=== PATIENT | female | born 1985 | race Caucasian/White ===

== ENCOUNTER → 2016-10-24 | Outpatient (CLI) | payer BC ==
[~2016-10-24] MED LIST: PRENTAB26 PO
== END | disposition home or self-care (01) ==
LOC: C.PAPS 16:01
PROVIDERS: ATTEND Physician Assistant
DX: Z01.419 Encounter for gynecological examination (general) (routine) without abnormal findings (principal)

== ENCOUNTER 2017-02-02 07:10 | Observation (INO) | payer BC, OTHER ==
[2017-01-12 12:49] VITALS: BMI 39.0
--- NOTE | 2017-01-12 13:18 | PAT Medication Instructions ---
Service Date Jan 12, 2017. Current Home Medication List Albuterol Hfa (Ventolin Hfa), 2 PUFFS INH PRN Ethinyl Estradiol/Norethindr (Microgestin 1.5MG/30MG), 1 TAB PO QAM Ibuprofen Tab (Advil), 600 MG PO PRN Medication Instructions For Your Scheduled Surgery - Contact your surgeon for instructions for: Ethinyl Estradiol/Norethindr (Microgestin 1.5MG/30MG), 1 TAB PO QAM Ibuprofen Tab (Advil), 600 MG PO PRN - Take the following medications the morning of surgery with a sip of water: Albuterol Hfa (Ventolin Hfa), 2 PUFFS INH PRN (if needed) - Take the following medications as scheduled the night before surgery: Albuterol Hfa (Ventolin Hfa), 2 PUFFS INH PRN (if needed) If you have any questions please call us at [phone] or [phone] or [phone]
[2017-01-12 14:06] LABS: BASO % 0.4 %; BASO ABS # 0.03 K/uL (0-0.2); COMPLETE YES; EOS % 1.7 %; IG% 0.1 %; LYMPH % 30.2 %; LYMPH ABS # 2.09 K/uL (1.2-3.4); MEAN CELL VOLUME 95.6 fL (80-100); MEAN CORPUSCULAR HEMOGLOBIN 31.6 pg (25-34); MEAN CORPUSCULAR HGB CONC 33.1 g/dl (32-36); MEAN PLATELET VOLUME 9.4 fL (7.4-10.4); NEUT % 58.6 %; PLATELET COUNT 253 K/uL (130-400); RED BLOOD COUNT 4.08 M/uL (4.2-5.4); WHITE BLOOD COUNT 6.91 K/uL (4.8-10.8)
[~2017-02-02] VITALS: Ht 154.9 cm; Wt 93.0 kg
[~2017-02-02 07:10] MED LIST changes: +CEFAZOLIN 2000MG IV PUSH 10 ML IV SCH; +IBUP-103 PO; +LACTATED RINGER'S 1000ML 1,000 ML IV SCH; +NORE-24 PO; -PRENTAB26 PO; +VNTHFA/IN INH
[2017-02-02 07:35] VITALS: BP 135/74; PULSE 90; TEMP 36.4; O2SAT 98; Ht 154.9 cm; Wt 93.0 kg
[2017-02-02] MEDS ORDERED: LOPE-41 PO (07:35)
--- NOTE | 2017-02-02 07:40 | History & Physical Bridge Note ---
H&P Re-Evaluation Bridge Note: I have examined the patient, reviewed the History & Physical and in the interval since the performance of the History & Physical I have noted the following changes of clinical significance: No changes noted
[2017-02-02] MEDS ORDERED: LACTATED RINGER'S 1000ML 1,000 ML IV SCH (07:44)
[2017-02-02] MEDS ORDERED: KETOROLAC TROMETHAMINE 30 MG/ML VIAL IV. PRN (07:45)
[2017-02-02] MEDS ORDERED: SIMETHICONE 80 MG CHEW PO PRN (07:45)
[2017-02-02] MEDS ORDERED: MEPERIDINE HCL 50 MG/ML CARP IV PRN ×2 (07:45)
[2017-02-02] MEDS ORDERED: ACETAMINOPHEN 325 MG TAB PO PRN (07:45)
[2017-02-02] MEDS ORDERED: ONDANSETRON INJ 2 MG/ML 2 ML VIAL IV PRN ×2 (07:45→11:00)
[2017-02-02] MEDS ORDERED: IBUPROFEN 600 MG TAB PO PRN (07:45)
[2017-02-02] MEDS ORDERED: PROMETHAZINE HCL INJ 12.5 MG in SODIUM CHLORIDE 0.9% 50ML 50 ML IV PRN (07:45)
[2017-02-02] MEDS ORDERED: OXYCODONE/ACETAMINOPHEN 5-325 TAB PO PRN ×2 (07:45)
--- NOTE | 2017-02-02 07:46 | Discharge Instructions ---
Discharge Instructions Date of Service Feb 02, 2017. Visit Reason for Visit: Abnormal Uterine Bleeding Discharge Discharge Diagnosis / Problem: Hysterectomy Discharge Goals Goal(s): Specific goals Activity Recommendations Activity Limitations: per Instructions/Follow-up section Anesthesia . Post Anesthesia Instructions: If you have had General Anesthesia or IV Sedation: * Do not drive today. * Resume driving when surgeon permits. * Do not make important decisions or sign legal documents today. * Call surgeon for: 1. Temperature elevations greater than 101 degrees F. 2. Uncontrollable pain. 3. Excessive bleeding. 4. Persistent nausea and vomiting. 5. Medication intolerance (nausea, vomiting or rash). * For nausea and vomiting use only clear liquids such as: tea, soda, bouillon until nausea subsides, then gradually increase diet as tolerated. * If you have any concerns or questions, call your surgeon's office. If physician is unavailable and it is an emergency, call 911 or go to the nearest emergency room. . Instructions / Follow-Up Instructions / Follow-Up POST OPERATIVE: BOWEL FUNCTION/MEDICATIONS: 1. Constipation pain and discomfort are the most common complaints 5-7 days after surgery. Points 2-6 address the things that can help. 2. Chewing gum can help stimulate the gut and help improve digestion and motility. 3. Milk of Magnesia 1-2 times per day until return of bowel function. 4. Colace is a stool softener that helps. Taking this 2-3 times per day until bowel function returns to normal is highly recommended. 5. Dulcolax is a laxative that may be used if several days have passed without a bowel movement. Alternatively Miralax may be used daily instead. 6. Drink plenty of fluids as this will also reduce constipation. 7. Narcotic pain medications will be prescribed by your physician. They are safe to use and we encourage you to use them. If you are not allergic, ibuprofen will also be prescribed. Many patients will be able to transition off of the narcotic medications to ibuprofen by postoperative day 3. ACTIVITY RECOMMENDATIONS: 1. Get plenty of rest and listen to your body. If you are tired, take a nap. 2. You may shower, but do not take a tub bath until you see your doctor at the 2 week post operative visit. 3. Absolutely NO intercourse and nothing in the vagina until you are examined by your doctor at the 6 week visit. At that visit it will be determined when such activities can be resumed. This can range from 6-12 weeks after your surgery depending on healing time. 4. The main physical activity in the first week should be walking. By the second week you can slowly increase activity. There are no limits on walking up and down stairs. 5. Do not lift more than 5-10 lbs for 4 weeks. Remember the "one-handed rule", i.e. if you can lift something with only one hand it's likely okay. 6. 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 "Overdoing it" can lead to incisions not healing, pain and vaginal bleeding , so again, listen to your body. 7. Driving can be resumed when you feel able. Do not drive within 24 hours of taking a narcotic medication. EXPECTATIONS: 1. Vaginal spotting, bleeding and discharge are common after surgery. There may even be an odor to the discharge which is often related to sutures used in the vagina. If you experience heavy vaginal bleeding, call the office number day or night [phone]. 2. Bladder discomfort is common after surgery from the catheter. This usually resolves in 1-2 weeks. 3. By the end of the 3rd or 4th week you should be feeling much better. It may take up to 6 weeks for your energy levels to return to normal. 4. Narcotic medications have side effects such as: dizziness, headache, nausea and/or vomiting. If you suspect your pain medication is causing problems, call our office and we may be able to prescribe an alternate medication. 5. The skin incisions are often covered with a liquid bandage. This will gradually peel off over time. CALL THE OFFICE IF YOU HAVE ANY OF THE FOLLOWIN. Temperature of 101 degrees or higher. 2. Severe abdominal or pelvic pain not relieved by pain medication. 3. Persistent nausea or vomiting. 4. Increased pain with urination or difficulty urinating. 5. Bright red bleeding that soaks more than 1 pad per hour. CONTACT PHONE NUMBERS: Main Office: [phone] Surgical Nurse: [phone] extension [phone] FOLLOW-UP: Post-Operative Appointments: * Individual instructions will have been given about the timing of your first examination, but this is usually at the end of the second week home. * You will need to call the office at soon after discharge to make the appointment for your post-op check-up if it has not already been scheduled. * Additional information regarding activity, sexual intercourse and when to return to work will be given at this appointment. WE WISH YOU A SPEEDY RECOVERY! Diet Recommendations Recommended Home Diet: resume previous diet Pending Studies Studies pending at discharge: no Medical Emergencies . Who to Call and When: Medical Emergencies: If at any time you feel your situation is an emergency, please call 911 immediately. . Non-Emergent Contact Non-Emergency issues call your: Primary Care Provider . . "Provider Documentation" section prepared by Loren Dunham. . [place] Drug Monitoring Program Search Results: patient reviewed within database, no issues identified
[2017-02-02] MEDS ORDERED: IV FLUIDS COMPLETED PRN (08:15)
[2017-02-02] MEDS ORDERED: NEOSTIGMINE METHYLSULFATE 5 MG/5 ML SYR ONE (08:41)
[2017-02-02] MEDS ORDERED: MIDAZOLAM HCL 1 MG/ML 2ML VIAL ONE (08:41)
[2017-02-02] MEDS ORDERED: ONDANSETRON INJ 2 MG/ML 2 ML VIAL ONE (08:41)
[2017-02-02] MEDS ORDERED: DEXAMETHASONE SOD INJ 4 MG/ML VIAL ONE (08:41)
[2017-02-02] MEDS ORDERED: LIDOCAINE HCL 2% 2 ML VIAL (20MG/ML) ONE (08:41)
[2017-02-02] MEDS ORDERED: PROPOFOL IV EMULSION 10 MG/ML 20 ML VIAL IV ONE (08:41)
[2017-02-02] MEDS ORDERED: GLYCOPYRROLATE INJ 0.2 MG/ML VIAL ONE (08:41)
[2017-02-02] MEDS ORDERED: FENTANYL CITRATE INJ 50 MCG/1 ML 2 ML VIAL ONE ×2 (08:41→10:58)
[2017-02-02] MEDS ORDERED: DOCUSATE SODIUM 100 MG CAP PO SCH (09:00)
[2017-02-02] MEDS ORDERED: BUPIVACAINE 0.5 % 5 MG/1 ML MPF 30ML VIAL ONE (09:05)
[2017-02-02] MEDS ORDERED: ROCURONIUM BROMIDE 10 MG/ML 5 ML VIAL IV ONE (10:32)
[2017-02-02] MEDS ORDERED: KETOROLAC TROMETHAMINE 30 MG/ML VIAL ONE (10:32)
[2017-02-02] MEDS ORDERED: LABETALOL HCL IV 5 MG/ML 20ML IV PRN (11:00)
[2017-02-02] MEDS ORDERED: ATROPINE SULFATE 0.1 MG/ML 5ML SYR IV PRN (11:00)
[2017-02-02] MEDS ORDERED: EpHEDrine SULFATE INJ 50 MG/ML AMP IV PRN (11:00)
[2017-02-02] MEDS ORDERED: MEPERIDINE HCL 25 MG/ML CARP IV PRN (11:00)
[2017-02-02] MEDS ORDERED: FENTANYL CITRATE INJ 50 MCG/1 ML 2 ML VIAL IV PRN (11:00)
--- NOTE | 2017-02-02 11:05 | [facility] Post Operative Brief Note ---
Immediate Operative Summary Operative Date Feb 02, 2017. Pre-Operative Diagnosis Abnormal uterine bleeding Post-Operative Diagnosis Abnormal uterine bleeding Procedure(s) Performed DaVinci robot assisted total laparoscopic hysterectomy, bilateral salpingectomy , cystoscopy Surgeon Dr. Dunham Sales Applications Engineer Surgeon(s) Dr. Brown Estimated Blood Loss 10 ml Findings Normal appearing uterus, tubes, ovaries. Adhesions focused around cecum in RLQ. Cystoscopy with urine jet from each UO. Specimens A: Uterus, Cervix, and bilateral fallopian tubes Complication(s) None Disposition Recovery Room / PACU
[2017-02-02] MEDS ORDERED: HYDROmorphone INJ 1 MG/ML SYR ONE (11:09)
[2017-02-02] MEDS ORDERED: OXYC-57 PO (11:16)
[2017-02-02] MEDS: HYDROmorphone INJ 1 MG/ML SYR IV PRN ×2 (11:29→11:38)
--- NOTE | 2017-02-02 11:30 | OPERATIVE REPORT ---
DATE OF OPERATION: 02/02/2017 PREOPERATIVE DIAGNOSIS: Abnormal uterine bleeding. POSTOPERATIVE DIAGNOSIS: Same. PROCEDURE: Da Julio robot assisted total laparoscopic hysterectomy, bilateral salpingectomy and cystoscopy. SURGEON: Loren Dunham MD. LAST SCOURER: Alex Brown MD. ESTIMATED BLOOD LOSS: 10 mL. FINDINGS: Normal appearing uterus, tubes, and ovaries, adhesions focused around the cecum and the right lower quadrant. Cystoscopy with a urine jet seen from each ureteral orifice. SPECIMENS: Uterus, cervix and bilateral fallopian tubes. COMPLICATIONS: None. DISPOSITION: Stable to the recovery room. DESCRIPTION: Josefina is a 31-year-old who was seen in the office for abnormal uterine bleeding. She had either failed or declined all of the less invasive options and after several visits expressing her distinct desire for definitive therapy. We agree to proceed with a robotic laparoscopic hysterectomy. The patient was brought to the operating room, placed on the table in the dorsal lithotomy position, prepped and draped in standard sterile fashion and a hard time-out was taken prior to proceeding. First, a Rodriguez was placed and then the Ripstone uterine manipulator was placed in the typical manner. An optical entry was then made through the patient's umbilicus and the abdomen was then insufflated without any difficulty. Under direct visualization, right and left lower quadrant ports were placed. The robot was docked and surgery then began. Dissection of the right fallopian tube off of the mesosalpinx up to the cornu proceeded. The uteroovarian ligament was then ligated and divided. The round ligament was ligated and divided and a bladder flap was created. The uterine arteries were skeletonized and these were then ligated and divided on the right side. Attention was turned to the left where this was repeated dissecting the fallopian tube off of the mesosalpinx, ligating and dividing the uteroovarian ligament, ligating and dividing the round ligament and then skeletonizing the uterine artery while completing the bladder flap. The uterine arteries on the left were then ligated and divided. Colpotomy was then completed circumferentially. The uterus, cervix and tubes were delivered in 1 en bloc package through the vagina. The vaginal cuff was then closed using a V-Loc suture in a running nonlocked manner. At the completion of repair, the pelvis was copiously irrigated and good hemostasis was seen at all working sites. Both ovaries appeared viable and a survey of the abdomen revealed only some adhesive disease near the cecum which was not addressed other than having been observed. After administration of methylene blue dye, cystoscopy was completed and a good jet of urine was seen from each ureteral orifice. Closure was accomplished with a UR-6 at the fascial layer of the umbilicus. Monocryl at all 3 skin sites and then Dermabond dressing was applied. The patient was transferred in stable condition to the recovery room. I attest to the content of the Intraoperative Record and any orders documented therein. Any exception s are noted below.
--- NOTE | 2017-02-02 11:55 | Anesthesiology Progress Note ---
Anesthesia Post Op Note Date & Time Feb 02, 2017 at 11:55 Vital Signs Pain Intensity: 6 Vital Signs Past 12 Hours Date Time Temp Pulse Resp B/P (MAP) Pulse Ox O2 Delivery O2 Flow Rate FiO2 02/02/17 11:40 36.0 58 21 134/82 100 Nasal Cannula 2 02/02/17 11:30 58 20 129/72 100 Nasal Cannula 2 02/02/17 11:20 57 20 128/71 99 Nasal Cannula 2 02/02/17 11:10 55 19 129/76 100 Oxymask 10 02/02/17 11:00 53 21 139/64 100 Oxymask 10 02/02/17 10:50 36.2 57 16 148/61 99 Oxymask 10 02/02/17 07:35 36.4 90 20 135/74 (94) 98 Room Air Notes Mental Status: alert / awake / arousable, participated in evaluation Pt Amnestic to Procedure: Yes Nausea / Vomiting: adequately controlled Pain: adequately controlled Airway Patency, RR, SpO2: stable & adequate BP & HR: stable & adequate Hydration State: stable & adequate Anesthetic Complications: no major complications apparent
[2017-02-02] MEDS ORDERED: METHYLENE BLUE 0.5% 10 ML VIAL ONE (12:07)
[2017-02-02 12:20] VITALS: BP 122/57; PULSE 71; TEMP 37.2; O2SAT 98; O2SAT 99
[2017-02-02 12:50] VITALS: BP 126/74; PULSE 60; O2SAT 100
[2017-02-02 13:50] VITALS: BP 116/78; PULSE 77; TEMP 36.6; O2SAT 95
[2017-02-02 14:54] LABS: HEMATOCRIT 37.1 % (37-47)
[2017-02-02 15:30] VITALS: BP 108/71; PULSE 96; TEMP 36.8; O2SAT 97
[2017-02-02 17:01] VITALS: BP 108/71; PULSE 96; TEMP 36.8; O2SAT 97
== END 2017-02-02 17:50 | disposition home or self-care (01) ==
LOC: C.ACU 07:10 → C.MS4N 07:50
PROVIDERS: ADMIT Obstetrics & Gynecology; ATTEND Obstetrics & Gynecology
DX: N93.9 Abnormal uterine and vaginal bleeding, unspecified (principal); J45.909 Unspecified asthma, uncomplicated; Z98.818 Other dental procedure status; Z87.891 Personal history of nicotine dependence; E66.9 Obesity, unspecified; Z68.39 Body mass index [BMI] 39.0-39.9, adult; Z98.890 Other specified postprocedural states; Z90.49 Acquired absence of other specified parts of digestive tract; Z80.9 Family history of malignant neoplasm, unspecified; Z83.3 Family history of diabetes mellitus
CPT/HCPCS: 58571; S2900

== ENCOUNTER 2017-04-01 14:03 | Emergency (ER) | payer BC ==
[~2017-04-01] VITALS: Ht 157.5 cm; Wt 93.0 kg
[~2017-04-01 14:03] MED LIST changes: -CEFAZOLIN 2000MG IV PUSH 10 ML IV SCH; -LACTATED RINGER'S 1000ML 1,000 ML IV SCH; +LOPE-41 PO; -NORE-24 PO; +OXYC-57 PO
[2017-04-01 14:24] VITALS: Ht 157.5 cm; Wt 93.0 kg
[2017-04-01] MEDS ORDERED: XYLOCAINE 1%/SOD BICARB 20 ML VIAL INFIL ONE (14:45)
[2017-04-01 15:09] VITALS: BP 126/75; PULSE 64; TEMP 36.7; O2SAT 100
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
== END 2017-04-01 15:10 | disposition home or self-care (01) ==
LOC: C.EDB 14:04 → C.EDD 15:10
DX: S61.215A Laceration without foreign body of left ring finger without damage to nail, initial encounter (principal); W25.XXXA Contact with sharp glass, initial encounter; Y92.019 Unspecified place in single-family (private) house as the place of occurrence of the external cause; Z87.891 Personal history of nicotine dependence; Z83.3 Family history of diabetes mellitus; Z82.49 Family history of ischemic heart disease and other diseases of the circulatory system

== ENCOUNTER → 2017-06-12 | Outpatient (CLI) | payer BC ==
[~2017-06-12] MED LIST changes: -OXYC-57 PO
== END | disposition home or self-care (01) ==
LOC: C.PATHSPEC 15:39
PROVIDERS: ATTEND Obstetrics & Gynecology
DX: L91.8 Other hypertrophic disorders of the skin (principal); D28.0 Benign neoplasm of vulva